=== PATIENT | female | born 1940 | race Caucasian/White ===

== ENCOUNTER 2023-03-26 07:54 | Day surgery (SDC) | payer MEDICARE ==
[2023-03-26] MEDS ORDERED: Propofol 200 MG/20 ML SDV ONE (08:44)
[2023-03-26] MEDS ORDERED: Sodium Chloride 0.9% 1,000 ML IV SCH (09:00)
[2023-03-26 11:08] VITALS: BP 170/76; PULSE 73
== END 2023-03-26 11:19 | disposition home or self-care (01) ==
LOC: JP.SDS 07:54
PROVIDERS: ATTEND Internal Medicine
DX: K22.2 Esophageal obstruction (principal); I10 Essential (primary) hypertension; M19.90 Unspecified osteoarthritis, unspecified site; D64.9 Anemia, unspecified
CPT/HCPCS: 43248; J2704; J7030

== ENCOUNTER 2023-05-29 06:03 | Day surgery (SDC) | payer MEDICARE ==
[2023-05-29] MEDS ORDERED: Sodium Chloride 0.9% 1,000 ML IV SCH (06:30)
[2023-05-29] MEDS ORDERED: fentaNYL 50 MCG/ML SDV ONE (07:20)
[2023-05-29] MEDS ORDERED: Propofol 200 MG/20 ML SDV ONE (07:20)
[2023-05-29 10:49] VITALS: BP 170/68; PULSE 58
== END 2023-05-29 09:10 | disposition home or self-care (01) ==
LOC: JP.SDS 06:03
PROVIDERS: ATTEND Internal Medicine
DX: K22.2 Esophageal obstruction (principal); I12.9 Hypertensive chronic kidney disease with stage 1 through stage 4 chronic kidney disease, or unspecified chronic kidney disease; N18.9 Chronic kidney disease, unspecified; Z88.8 Allergy status to other drugs, medicaments and biological substances; Z88.7 Allergy status to serum and vaccine; Z91.030 Bee allergy status
CPT/HCPCS: 43248; J2704; J3010; J7030

== ENCOUNTER 2025-06-25 06:24 | Day surgery (SDC) | payer MEDICARE ==
[2025-06-25] MEDS ORDERED: Propofol 200 MG/20 ML SDV ONE (06:58)
[2025-06-25] MEDS: Lactated Ringers 1,000 ML IV SCH (07:15)
[2025-06-25 08:53] VITALS: BP 156/57; PULSE 52
== END 2025-06-25 09:09 | disposition home or self-care (01) ==
LOC: JP.SDS 06:24
PROVIDERS: ATTEND Internal Medicine
DX: K22.2 Esophageal obstruction (principal); I48.91 Unspecified atrial fibrillation; I10 Essential (primary) hypertension; Z88.8 Allergy status to other drugs, medicaments and biological substances; Z79.01 Long term (current) use of anticoagulants; Z79.899 Other long term (current) drug therapy; Z91.030 Bee allergy status
CPT/HCPCS: 43248; J2704; J7120

== ENCOUNTER 2025-07-17 06:12 | Day surgery (SDC) | payer MEDICARE ==
[2025-07-17] MEDS: Lactated Ringers 1,000 ML IV SCH (07:03)
[2025-07-17] MEDS ORDERED: Propofol 200 MG/20 ML SDV ONE (07:15)
[2025-07-17] MEDS ORDERED: fentaNYL 50 MCG/ML SDV ONE (07:15)
[2025-07-17 08:49] VITALS: BP 162/50; PULSE 55
== END 2025-07-17 09:02 | disposition home or self-care (01) ==
LOC: JP.SDS 06:12
PROVIDERS: ATTEND Internal Medicine
DX: D12.3 Benign neoplasm of transverse colon (principal); K64.9 Unspecified hemorrhoids; K62.5 Hemorrhage of anus and rectum; I48.91 Unspecified atrial fibrillation; I10 Essential (primary) hypertension; Z88.8 Allergy status to other drugs, medicaments and biological substances; Z91.030 Bee allergy status; Z91.09 Other allergy status, other than to drugs and biological substances; Z79.01 Long term (current) use of anticoagulants; Z79.899 Other long term (current) drug therapy
CPT/HCPCS: 00811; 45380; J2704; J3010; J7120; 88305